=== PATIENT | male | born 1980 | race Caucasian/White ===

== ENCOUNTER 2019-07-14 19:15 | Emergency (ER) | payer SELFPAY ==
[~2019-07-14] VITALS: Ht 167.6 cm; Wt 78.9 kg
[2019-07-14 19:29] VITALS: Ht 167.6 cm; Wt 78.9 kg
[2019-07-14 22:02] VITALS: BP 155/77
== END 2019-07-14 22:02 | disposition home or self-care (01) ==
LOC: ED 19:15
DX: B34.9 Viral infection, unspecified (principal); R19.7 Diarrhea, unspecified; Z87.442 Personal history of urinary calculi
CPT/HCPCS: 87804; J1885; Q0162